=== PATIENT | male | born 1960 | race Caucasian/White ===

== ENCOUNTER 2019-05-21 14:44 | Inpatient (IN) | payer OTHER ==
[2019-05-21] VITALS (10 sets, daily range): BP systolic 93–114; BP diastolic 54–73
[~2019-05-21] VITALS: Ht 170.2 cm; Wt 95.3 kg
[2019-05-21 15:16] LABS: CREATININE ISTAT 1.1 mg/dL (0.5-1.4); HEMOGLOBIN ISTAT 14.6 g/dL (14-18); ION CA ISTAT 1.16 mmol/L (1.13-1.32)
[2019-05-21] MEDS ORDERED: IODIXANOL 320 MG/ML 100 ML VIAL. ONE ×2 (15:27→16:09)
[2019-05-21] MEDS ORDERED: LIDOCAINE 1% Multi-Dose 20 ML VIAL. ONE (15:27)
[2019-05-21] MEDS ORDERED: fentaNYL PF VIAL 100 MCG/2 ML VIAL ONE (15:28)
[2019-05-21] MEDS ORDERED: MIDAZOLAM HCL/PF 5 MG/5 ML VIAL. ONE (15:28)
[2019-05-21] MEDS ORDERED: BIVALIRUDIN 250 MG VIAL. IV ONE ×2 (15:29→16:00)
[2019-05-21] MEDS ORDERED: HEPARIN for IV BOLUS 10,000 UNIT/10 ML VIAL. IV ONE (15:30)
[2019-05-21] MEDS ORDERED: ASPIRIN CHEWABLE 81 MG TABLET. PO ONE (15:30)
--- NOTE | 2019-05-21 15:34 | PHYS DOC ---
Past Medical History Past Medical History: No Pertinent History Alcohol Use: None Drug Use: None Adult General Chief Complaint Chief Complaint: ABDOMINAL PAIN HPI HPI Patient is a 59 year old male who presents with complaining of abdominal pain. Patient complaining of 2 episodes of substernal chest pain that started 4 and 3 days ago and lasted about 20 minutes as a sharp pain without radiation or shortness of breath that resolved spontaneously. Patient complaining of episodes of pressure and fullness of epigastric pain without nausea and vomiting, chest pain, shortness of breath, dizziness and weakness, urinary symptom. Patient states he had couple episodes of diarrhea today. Patient having been seen by a physician for the last 34 years at one time during employee recheck was told he had elevated cholesterol. Review of Systems Review of Systems Constitutional: Denies fever or chills [] Eyes: Denies change in visual acuity, redness, or eye pain [] HENT: Denies nasal congestion or sore throat [] Respiratory: Denies cough or shortness of breath [] Cardiovascular: No additional information not addressed in HPI [] GI: Reports abdominal pain, diarrhea [] : Denies dysuria or hematuria [] Musculoskeletal: Denies back pain or joint pain [] Integument: Denies rash or skin lesions [] Neurologic: Denies headache, focal weakness or sensory changes [] Endocrine: Denies polyuria or polydipsia [] All other systems were reviewed and found to be within normal limits, except as documented in this note. Current Medications Current Medications Current Medications Medications (Trade) Dose Ordered Sig/Renita Start Time Stop Time Status Last Admin Dose Admin Aspirin (Children'S Aspirin) 324 mg 1X ONCE 05/21/19 15:30 05/21/19 15:31 DC 05/21/19 15:32 324 MG Bivalirudin (Angiomax) 250 mg STK-MED ONCE 05/21/19 15:29 05/21/19 15:29 DC Fentanyl Citrate (Fentanyl 2ml Vial) 100 mcg STK-MED ONCE 05/21/19 15:28 05/21/19 15:29 DC Heparin Sodium (Porcine) (Heparin Sodium) 4,000 unit 1X ONCE 05/21/19 15:30 05/21/19 15:31 DC 05/21/19 15:32 4,000 UNIT Heparin Sodium/ Sodium Chloride 500 ml @ As Directed STK-MED ONCE 9/23/19 15:27 05/21/19 15:27 DC Iodixanol (Visipaque 320) 100 ml STK-MED ONCE 05/21/19 15:27 05/21/19 15:27 DC Lidocaine HCl (Lidocaine 1% 20ml Vial) 20 ml STK-MED ONCE 05/21/19 15:27 05/21/19 15:27 DC Midazolam HCl (Versed) 5 mg STK-MED ONCE 05/21/19 15:28 05/21/19 15:29 DC Allergies Allergies Allergies Coded Allergies Type Severity Reaction Last Updated Verified codeine Allergy Intermediate 05/21/19 Yes Physical Exam Physical Exam Constitutional: Well developed, well nourished, mild distress, non-toxic appearance. [] HENT: Normocephalic, atraumatic. Eyes: PERRLA, EOMI, conjunctiva normal, no discharge. [] Neck: Normal range of motion, no tenderness, supple, no stridor. [] Cardiovascular:Heart rate regular rhythm, no murmur [] Lungs & Thorax: Bilateral breath sounds clear to auscultation [] Abdomen: Bowel sounds normal, soft, no tenderness, no masses, no pulsatile masses. [] Skin: Warm, dry, no erythema, no rash. [] Back: No tenderness, no CVA tenderness. [] Extremities: No tenderness, no cyanosis, no clubbing, ROM intact, no edema. [] Neurologic: Alert and oriented X 3, no focal deficits noted. [] Psychologic: Affect normal, judgement normal, mood normal. [] Current Patient Data Vital Signs Vital Signs Date Time Temp Pulse Resp B/P (MAP) Pulse Ox O2 Delivery O2 Flow Rate FiO2 05/21/19 15:22 97 129/58 (81) 96 05/21/19 14:50 98.1 18 Room Air 98.1 Lab Values Laboratory Tests Test 05/21/19 15:02 05/21/19 15:08 White Blood Count 9.6 x10^3/uL (4.0-11.0) Red Blood Count 4.97 x10^6/uL (4.30-5.70) Hemoglobin 15.2 g/dL (13.0-17.5) Hematocrit 43.5 % (39.0-53.0) Mean Corpuscular Volume 87 fL (79-100) Mean Corpuscular Hemoglobin 31 pg (25-35) Mean Corpuscular Hemoglobin Concent 35 g/dL (31-37) Red Cell Distribution Width 13.2 % (11.5-14.5) Platelet Count 180 x10^3/uL (140-400) Neutrophils (%) (Auto) 74 % (31-73) H Lymphocytes (%) (Auto) 15 % (24-48) L Monocytes (%) (Auto) 11 % (0-9) H Eosinophils (%) (Auto) 1 % (0-3) Basophils (%) (Auto) 0 % (0-3) Neutrophils # (Auto) 7.1 x10^3/uL (1.8-7.7) Lymphocytes # (Auto) 1.4 x10^3/uL (1.0-4.8) Monocytes # (Auto) 1.0 x10^3/uL (0.0-1.1) Eosinophils # (Auto) 0.1 x10^3/uL (0.0-0.7) Basophils # (Auto) 0.0 x10^3/uL (0.0-0.2) Prothrombin Time 13.5 SEC (11.7-14.0) Prothrombin Time INR 1.1 (0.8-1.1) Sodium Level 141 mmol/L (136-145) Potassium Level 3.1 mmol/L (3.5-5.1) L Chloride Level 104 mmol/L (98-107) Carbon Dioxide Level 29 mmol/L (21-32) Anion Gap 8 (6-14) 16 mmol/L (6-14) H Blood Urea Nitrogen 23 mg/dL (8-26) Creatinine 1.2 mg/dL (0.7-1.3) Estimated GFR (Cockcroft-Gault) 62.2 BUN/Creatinine Ratio 19 (6-20) Glucose Level 156 mg/dL (70-99) H 159 mg/dL (70-99) H Calcium Level 9.2 mg/dL (8.5-10.1) Magnesium Level 2.3 mg/dL (1.8-2.4) Total Bilirubin 1.0 mg/dL (0.2-1.0) Aspartate Amino Transferase (AST) 61 U/L (15-37) H Alanine Aminotransferase (ALT) 33 U/L (16-63) Alkaline Phosphatase 66 U/L (46-116) Creatine Kinase 239 U/L (39-308) Troponin I Quantitative 10.407 ng/mL (0.000-0.055) UX-Vzk-S-Type Natriuretic Peptide 2564 pg/mL (0-124) H Total Protein 7.3 g/dL (6.4-8.2) Albumin 3.3 g/dL (3.4-5.0) L Albumin/Globulin Ratio 0.8 (1.0-1.7) L POC Hemoglobin 14.6 g/dL (14-18) POC Hematocrit 43 % (37-52) POC Sodium 138 mmol/L (135-145) POC Potassium 3.0 mmol/L (3.5-5.0) L POC Chloride 101 mmol/L (98-110) POC Total CO2 25 mmol/L (23-32) POC Blood Urea Nitrogen 21 mg/dL (8-26) POC Creatinine 1.1 mg/dL (0.5-1.4) POC Ionized Calcium (Maria T) 1.16 mmol/L (1.13-1.32) POC Troponin I 6.22 ng/ml (<0.08) Laboratory Tests 05/21/19 15:02 Laboratory Tests 05/21/19 15:02 05/21/19 15:08 EKG EKG EKG interpreted by me. EKG at 1454 showed normal sinus rhythm at rate of 72, incomplete right bundle branch block, ST elevation in anteroseptal dates without reciprocal change, epigastric EKG at 15 00 showed the same changes and code STEMI was activated. Radiology/Procedures Radiology/Procedures [] Course & Med Decision Making Course & Med Decision Making Pertinent Labs reviewed. (See chart for details) Evaluation of patient in ER showed 59-year-old male patient 4 days ago and epigastric pain with diarrhea. EKG showed ST elevation in anteroseptal dates and code STEMI was activated and Dr. Perez was informed at 1524 and recommended to start Heparin cardiac protocol. Dr. Malone evaluated patient in ER and patient was transferred to Electronic Publishing Specialist.Patient requiring admission for further evaluation and treatment. Discussed with Dr. Simmons who is in agreement with admission. Discussed findings and plan with patient and family, who acknowledge understanding and agreement. Dragon Disclaimer Dragon Disclaimer This electronic medical record was generated, in whole or in part, using a voice recognition dictation system. Departure Departure Impression: Primary Impression: STEMI (ST elevation myocardial infarction) Additional Impressions: Hypokalemia CHF (congestive heart failure) Disposition: 09 ADMITTED INPATIENT Admitting Physician: ILIANA Condition: GUARDED Referrals: NO PCP (PCP) Critical Care Time Critical care time was 40 minutes exclusive of procedures. The HEART Score for CP Pts HEART Score for Chest Pain: HEART Score for Chest Pain Response (Comments) Value History Moderately Suspicious (Fedra@123) [address] Depression 2 Age >45 - < 65 1 Risk Factors 1 or 2 Risk Factors 1 Troponin >3 x Normal Limit 2 Total 7 Risk Factors: Risk Factors: DM, Current or recent (<one month) smoker, HTN, HLP, family hist ory of CAD, obesity. Risk Scores: Score 0 - 3: 2.5% MACE over next 6 weeks - Discharge Home Score 4 - 6: 20.3% MACE over next 6 weeks - Admit for Clinical Observation Score 7 - 10: 72.7% MACE over next 6 weeks - Early Invasive Strategies Problem Qualifiers Primary Impression: STEMI (ST elevation myocardial infarction) Involved coronary artery: unspecified coronary artery Qualified Codes: I21.3 - ST elevation (STEMI) myocardial infarction of unspecified site Additional Impressions: CHF (congestive heart failure) Heart failure type: unspecified Heart failure chronicity: unspecified Qualified Codes: I50.9 - Heart failure, unspecified PABLO PACK MD May 21, 2019 15:34
--- NOTE | 2019-05-21 15:55 | EKG ---
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
[2019-05-21] MEDS ORDERED: NITROGLYCERIN 200 MCG/2 ML SYRINGE FOR CATH/VASC LAB. ONE (15:58)
[2019-05-21 15:59] LABS: BASO % 0 % (0-3); EOS # 0.1 x10^3/uL (0.0-0.7); EOS % 1 % (0-3); HEMATOCRIT 43.5 % (39.0-53.0); HEMOGLOBIN 15.2 g/dL (13.0-17.5); LYMPH # 1.4 x10^3/uL (1.0-4.8); LYMPH % 15 % (24-48); MEAN CORPUSCULAR HEMOGLOBIN 31 pg (25-35); MEAN CORPUSCULAR HGB CONC 35 g/dL (31-37); MEAN CORPUSCULAR VOLUME 87 fL (79-100); MONO % 11 % (0-9); NEUT # 7.1 x10^3/uL (1.8-7.7); NEUT % 74 % (31-73); PLATELET COUNT 180 x10^3/uL (140-400); RED BLOOD COUNT 4.97 x10^6/uL (4.30-5.70); RED CELL DISTRIBUTION WIDTH 13.2 % (11.5-14.5); WHITE BLOOD COUNT 9.6 x10^3/uL (4.0-11.0)
[2019-05-21] MEDS ORDERED: fentaNYL PF VIAL 100 MCG/2 ML VIAL IV ONE (16:00)
[2019-05-21] MEDS ORDERED: LIDOCAINE 1% Multi-Dose 20 ML VIAL. INJ ONE (16:00)
[2019-05-21] MEDS ORDERED: NITROGLYCERIN 200 MCG/2 ML SYRINGE FOR CATH/VASC LAB. ICAR ONE (16:00)
[2019-05-21] MEDS ORDERED: MIDAZOLAM HCL/PF 5 MG/5 ML VIAL. IV ONE (16:00)
[2019-05-21] MEDS ORDERED: IODIXANOL 320 MG/ML 100 ML VIAL. IART ONE (16:00)
[2019-05-21 16:08] LABS: PROTHROMBIN TIME PATIENT 13.5 SEC (11.7-14.0)
[2019-05-21] MEDS ORDERED: TICAGRELOR 90 MG TABLET. ONE (16:11)
[2019-05-21 16:14] LABS: CALCIUM 9.2 mg/dL (8.5-10.1); CREATININE 1.2 mg/dL (0.7-1.3); GFR 62.2; POTASSIUM 3.1 mmol/L (3.5-5.1)
[2019-05-21] MEDS ORDERED: TICAGRELOR 90 MG TABLET. PO ONE (16:15)
[2019-05-21 16:16] LABS: ALBUMIN 3.3 g/dL (3.4-5.0); ALBUMIN/GLOBULIN RATIO 0.8 (1.0-1.7); MAGNESIUM 2.3 mg/dL (1.8-2.4); TOTAL PROTEIN 7.3 g/dL (6.4-8.2)
[2019-05-21] MEDS ORDERED: IV 1/2 NORMAL SALINE 1,000 ML IV SCH (16:42)
--- NOTE | 2019-05-21 16:42 | PDOC2 ---
CONSULT Date of Consult Date of Consult DATE: 05/21/19 TIME: 16:41 Reason for Consult Reason for Consult: Acute myocardial infarction Referring Physician Referring Physician: Dr. Simmons Identification/Chief Complaint Chief Complaint Abdominal pain Source Source: Chart review, Patient History of Present Illness Reason for Visit: 59-year-old male without any previous cardiac history presented with abdominal pain. Upon further interrogation, patient stated that he had an episode of chest pain past Tuesday when he was at work and then again after he got back home. The pressure-like sensation apparently lasted 24 hours and then he started having abdominal pain. He denied any associated shortness of breath, vomiting, diarrhea, palpitations or syncope. He is a nonsmoker and denied any family history of premature coronary disease. Past Medical History Cardiovascular: No pertinent hx Family History Family History Negative for coronary disease Social History No ALCOHOL: none Drugs: None Current Problem List Problem List Problems Medical Problems: (1) STEMI (ST elevation myocardial infarction) Status: Acute Current Medications Current Medications Current Medications Heparin Sodium (Porcine) (Heparin Sodium) 4,000 unit 1X ONCE IV Last administered on 05/21/19at 15:32; Start 05/21/19 at 15:30; Stop 05/21/19 at 15:31; Status DC Aspirin (Children'S Aspirin) 324 mg 1X ONCE PO Last administered on 05/21/19at 15:32; Start 05/21/19 at 15:30; Stop 05/21/19 at 15:31; Status DC Iodixanol (Visipaque 320) 100 ml STK-MED ONCE .ROUTE ; Start 05/21/19 at 15:27; Stop 05/21/19 at 15:27; Status DC Lidocaine HCl (Lidocaine 1% 20ml Vial) 20 ml STK-MED ONCE .ROUTE ; Start at 15:27; Stop 05/21/19 at 15:27; Status DC Heparin Sodium/ Sodium Chloride 500 ml @ As Directed STK-MED ONCE .ROUTE ; Start 05/21/19 at 15:27; Stop 05/21/19 at 15:27; Status DC Fentanyl Citrate (Fentanyl 2ml Vial) 100 mcg STK-MED ONCE .ROUTE ; Start 05/21/19 at 15:28; Stop 05/21/19 at 15:29; Status DC Midazolam HCl (Versed) 5 mg STK-MED ONCE .ROUTE ; Start 05/21/19 at 15:28; Stop 05/21/19 at 15:29; Status DC Bivalirudin (Angiomax) 250 mg STK-MED ONCE IV ; Start 05/21/19 at 15:29; Stop 05/21/19 at 15:29; Status DC Heparin Sodium/ Sodium Chloride 500 ml @ As Directed STK-MED ONCE .ROUTE ; Start 05/21/19 at 15:47; Stop 05/21/19 at 15:47; Status DC Nitroglycerin (Nitroglycerin) 200 mcg STK-MED ONCE .ROUTE ; Start 05/21/19 at 15:58; Stop 05/21/19 at 15:58; Status DC Nitroglycerin (Nitroglycerin) 200 mcg 1X ONCE ICAR Last administered on 05/21/19 16:29; Start 05/21/19 at 16:00; Stop 05/21/19 at 16:02; Status DC Heparin Sodium/ Sodium Chloride (HEPARIN for ARTERIAL LINE FLUSH) 1,000 unit 1X ONCE IART Last administered on 05/21/19 16:29; Start 05/21/19 at 16:00; Stop 05/21/19 at 16:02; Status DC Midazolam HCl (Versed) 5 mg 1X ONCE IV Last administered on 05/21/19 16:29; Start 05/21/19 at 16:00; Stop 05/21/19 at 16:03; Status DC Fentanyl Citrate (Fentanyl 2ml Vial) 100 mcg 1X ONCE IV Last administered on 05/21/19 16:29; Start 05/21/19 at 16:00; Stop 05/21/19 at 16:03; Status DC Iodixanol (Visipaque 320) 100 ml 1X ONCE IART Last administered on 05/21/19 16:29; Start 05/21/19 at 16:00; Stop 05/21/19 at 16:02; Status DC Bivalirudin (Angiomax) 250 mg 1X ONCE IV Last administered on 05/21/19 16:29; Start 05/21/19 at 16:00; Stop 05/21/19 at 16:02; Status DC Lidocaine HCl (Lidocaine 1% 20ml Vial) 20 ml 1X ONCE INJ Last administered on 05/21/19 16:29; Start 05/21/19 at 16:00; Stop 05/21/19 at 16:02; Status DC Iodixanol (Visipaque 320) 100 ml STK-MED ONCE .ROUTE ; Start 05/21/19 at 16:09; Stop 05/21/19 at 16:10; Status DC Ticagrelor (Brilinta) 90 mg STK-MED ONCE .ROUTE ; Start 05/21/19 at 16:11; Stop 05/21/19 at 16:12; Status DC Ticagrelor (Brilinta) 180 mg 1X ONCE PO Last administered on 05/21/19at 16:32; Start 05/21/19 at 16:15; Stop 05/21/19 at 16:16; Status DC Allergies Allergies: Coded Allergies: codeine (Verified Allergy, Intermediate, 05/21/19) ROS PSYCHOLOGICAL ROS: No: Hallucinations Eyes: No Loss of vision HEENT: No: Epistaxis Respiratory: No: Hemoptysis, Shortness of breath Cardiovascular: yes Chest Pain Gastrointestinal: No Vomiting Genitourinary: No Incontinence Neurological: No Seizures Skin: No Rash Physical Exam General: Alert, Oriented X3 HEENT: Atraumatic, PERRLA Lungs: Clear to auscultation Heart: Regular rate, No murmurs Abdomen: Soft Extremities: No edema Psych/Mental Status: Mood NL Vitals VITALS Vital Signs Date Time Temp Pulse Resp B/P (MAP) Pulse Ox O2 Delivery O2 Flow Rate FiO2 05/21/19 16:30 64 18 98 Nasal Cannula 2.0 05/21/19 15:22 129/58 (81) 05/21/19 14:50 98.1 98.1 Labs Labs Laboratory Tests Test 05/21/19 15:02 05/21/19 15:08 White Blood Count 9.6 x10^3/uL (4.0-11.0) Red Blood Count 4.97 x10^6/uL (4.30-5.70) Hemoglobin 15.2 g/dL (13.0-17.5) Hematocrit 43.5 % (39.0-53.0) Mean Corpuscular Volume 87 fL (79-100) Mean Corpuscular Hemoglobin 31 pg (25-35) Mean Corpuscular Hemoglobin Concent 35 g/dL (31-37) Red Cell Distribution Width 13.2 % (11.5-14.5) Platelet Count 180 x10^3/uL (140-400) Neutrophils (%) (Auto) 74 % (31-73) Lymphocytes (%) (Auto) 15 % (24-48) Monocytes (%) (Auto) 11 % (0-9) Eosinophils (%) (Auto) 1 % (0-3) Basophils (%) (Auto) 0 % (0-3) Neutrophils # (Auto) 7.1 x10^3/uL (1.8-7.7) Lymphocytes # (Auto) 1.4 x10^3/uL (1.0-4.8) Monocytes # (Auto) 1.0 x10^3/uL (0.0-1.1) Eosinophils # (Auto) 0.1 x10^3/uL (0.0-0.7) Basophils # (Auto) 0.0 x10^3/uL (0.0-0.2) Prothrombin Time 13.5 SEC (11.7-14.0) Prothromb Time International Ratio 1.1 (0.8-1.1) Sodium Level 141 mmol/L (136-145) Potassium Level 3.1 mmol/L (3.5-5.1) Chloride Level 104 mmol/L (98-107) Carbon Dioxide Level 29 mmol/L (21-32) Anion Gap 8 (6-14) 16 mmol/L (6-14) Blood Urea Nitrogen 23 mg/dL (8-26) Creatinine 1.2 mg/dL (0.7-1.3) Estimated GFR (Cockcroft-Gault) 62.2 BUN/Creatinine Ratio 19 (6-20) Glucose Level 156 mg/dL (70-99) 159 mg/dL (70-99) Calcium Level 9.2 mg/dL (8.5-10.1) Magnesium Level 2.3 mg/dL (1.8-2.4) Total Bilirubin 1.0 mg/dL (0.2-1.0) Aspartate Amino Transf (AST/SGOT) 61 U/L (15-37) Alanine Aminotransferase (ALT/SGPT) 33 U/L (16-63) Alkaline Phosphatase 66 U/L (46-116) Creatine Kinase 239 U/L (39-308) Troponin I Quantitative 10.407 ng/mL (0.000-0.055) JI-Cme-J-Type Natriuretic Peptide 2564 pg/mL (0-124) Total Protein 7.3 g/dL (6.4-8.2) Albumin 3.3 g/dL (3.4-5.0) Albumin/Globulin Ratio 0.8 (1.0-1.7) Bedside Hemoglobin 14.6 g/dL (14-18) Bedside Hematocrit 43 % (37-52) Bedside Sodium 138 mmol/L (135-145) Bedside Potassium 3.0 mmol/L (3.5-5.0) Bedside Chloride 101 mmol/L (98-110) Bedside Total CO2 25 mmol/L (23-32) Bedside Blood Urea Nitrogen 21 mg/dL (8-26) Bedside Creatinine 1.1 mg/dL (0.5-1.4) Bedside Ionized Calcium (Maria T) 1.16 mmol/L (1.13-1.32) Bedside Troponin I 6.22 ng/ml (<0.08) Laboratory Tests Test 05/21/19 15:02 05/21/19 15:08 White Blood Count 9.6 x10^3/uL (4.0-11.0) Red Blood Count 4.97 x10^6/uL (4.30-5.70) Hemoglobin 15.2 g/dL (13.0-17.5) Hematocrit 43.5 % (39.0-53.0) Mean Corpuscular Volume 87 fL (79-100) Mean Corpuscular Hemoglobin 31 pg (25-35) Mean Corpuscular Hemoglobin Concent 35 g/dL (31-37) Red Cell Distribution Width 13.2 % (11.5-14.5) Platelet Count 180 x10^3/uL (140-400) Neutrophils (%) (Auto) 74 % (31-73) Lymphocytes (%) (Auto) 15 % (24-48) Monocytes (%) (Auto) 11 % (0-9) Eosinophils (%) (Auto) 1 % (0-3) Basophils (%) (Auto) 0 % (0-3) Neutrophils # (Auto) 7.1 x10^3/uL (1.8-7.7) Lymphocytes # (Auto) 1.4 x10^3/uL (1.0-4.8) Monocytes # (Auto) 1.0 x10^3/uL (0.0-1.1) Eosinophils # (Auto) 0.1 x10^3/uL (0.0-0.7) Basophils # (Auto) 0.0 x10^3/uL (0.0-0.2) Prothrombin Time 13.5 SEC (11.7-14.0) Prothromb Time International Ratio 1.1 (0.8-1.1) Sodium Level 141 mmol/L (136-145) Potassium Level 3.1 mmol/L (3.5-5.1) Chloride Level 104 mmol/L (98-107) Carbon Dioxide Level 29 mmol/L (21-32) Anion Gap 8 (6-14) 16 mmol/L (6-14) Blood Urea Nitrogen 23 mg/dL (8-26) Creatinine 1.2 mg/dL (0.7-1.3) Estimated GFR (Cockcroft-Gault) 62.2 BUN/Creatinine Ratio 19 (6-20) Glucose Level 156 mg/dL (70-99) 159 mg/dL (70-99) Calcium Level 9.2 mg/dL (8.5-10.1) Magnesium Level 2.3 mg/dL (1.8-2.4) Total Bilirubin 1.0 mg/dL (0.2-1.0) Aspartate Amino Transf (AST/SGOT) 61 U/L (15-37) Alanine Aminotransferase (ALT/SGPT) 33 U/L (16-63) Alkaline Phosphatase 66 U/L (46-116) Creatine Kinase 239 U/L (39-308) Troponin I Quantitative 10.407 ng/mL (0.000-0.055) PQ-Tjq-U-Type Natriuretic Peptide 2564 pg/mL (0-124) Total Protein 7.3 g/dL (6.4-8.2) Albumin 3.3 g/dL (3.4-5.0) Albumin/Globulin Ratio 0.8 (1.0-1.7) Bedside Hemoglobin 14.6 g/dL (14-18) Bedside Hematocrit 43 % (37-52) Bedside Sodium 138 mmol/L (135-145) Bedside Potassium 3.0 mmol/L (3.5-5.0) Bedside Chloride 101 mmol/L (98-110) Bedside Total CO2 25 mmol/L (23-32) Bedside Blood Urea Nitrogen 21 mg/dL (8-26) Bedside Creatinine 1.1 mg/dL (0.5-1.4) Bedside Ionized Calcium (Maria T) 1.16 mmol/L (1.13-1.32) Bedside Troponin I 6.22 ng/ml (<0.08) Assessment/Plan Assessment/Plan Acute myocardial infarction probably with late presentation. EKG showed sinus rhythm with Q waves and ST elevations in lead V2 and V3. Patient denied any chest pain as such. Troponin level elevated. We will proceed with emergent cardiac catheterization and possible angioplasty. Risks and benefits were explained and he is agreeable. Continue current workup for abdominal pain. Thank you for your consultation. MARCELLA MCGHEE MD May 21, 2019 16:42
--- NOTE | 2019-05-21 16:42 | PDOC ---
MODERATE SEDATION ASSESSMENT RISKS/ALTERNATIVES Risks/Alternatives Risks and alternatives of this type of sedation and procedure discussed with: RISK/ALTERNATIVES: Patient H & P ON CHART H & P H & P on chart and reviewed for co-morbid conditions and appropriate labs. H&P ON CHART: Yes STATUS PREG STATUS ASSESSED: N/A MEDS/ALLERGIES REVIEWED Meds/Allergies Reviewed Medications and Allergies including time and route of recently administered narcotics and sedatives. MEDS/ALLERGIES REVIEWED: Yes ASA RATING ASA RATING: II AIRWAY ASSESSMENT Airway Assessment Airway patency, oral function limitations, presence of caps, crowns, dentures, partials, and ability to extend neck assessed. AIRWAY ASSESSMENT: Yes MALLAMPATI SCORE MALLAMPATI SCORE: II PRE-SEDATION ASSESSMENT PRE-SEDATION ASSESSMENT: Yes MARCELLA MCGHEE MD May 21, 2019 16:42
[2019-05-21] MEDS ORDERED: ACETAMINOPHEN 325 MG TABLET. PO PRN (16:45)
[2019-05-21] MEDS ORDERED: NITROGLYCERIN SUBLINGUAL 0.4 MG BOTTLE OF 25. SL PRN (16:45)
--- NOTE | 2019-05-21 16:54 | CARD ---
MR#: [id number] Date of Study: 05/21/2019 Ordering Physician: MARCELLA ZAMORA, Referring Physician: MARCELLA ZAMORA, Tech: RT Jean-Paul (R) APPROVED REPORT Technologist: RT Jean-Paul (R) ORESTES Nurse: Tg Rich R.N. Procedure(s) performed: 1. Left heart catheterization, selective coronary angiography and left ventr iculography 2. Successful PCI/drug eluting stent placement to the left anterior descending artery and successful PTCA to the diagonal branch fluoro time: 13.4 min dose:91 Gycm2 contrast:169ml moderate sedation: 52 MIN INDICATION The indication(s) include : Acute anterior wall myocardial infarction with late presentation. [facility] Clinical Frailty Scale [facility] Clinical Frailty Scale: Managing Well Heart Failure Heart Failure: No PROCEDURE NARRATIVE After explaining the risks, benefits and alternative options, [facility] Patient was brought to the cardiac Machine Sweeper Brush Maker and his right groin was prepped and draped in the usual fashion. 20 mL of 2% lidocaine was infiltrated into the skin and subcutaneous tissues for loca l anesthesia. Arterial access was obtained in the right common femoral artery and a 6 Frisian sheath w as inserted. 6 Frisian JL4 and 6 Frisian JR4 catheters were used to perform selective angiography of th e left and right coronary arteries. 6 Frisian pigtail catheter was used to perform left ventriculograp hy. The following findings were noted. FINDINGS 1. Hemodynamics: Left ventricle end diastolic pressure 22 mmHg consistent with acute diastolic hear t failure. No pullback gradient across the aortic valve. 2. Left ventriculography: Akinetic mid to distal anterolateral wall with ejection fraction estimate d at 30-35%. No significant mitral regurgitation was seen. 3. Coronary angiography: a. The left main coronary artery arose from the left sinus of Valsalva, gave rise to the left anteri or descending and left circumflex arteries and did not show any significant stenosis. b. The left anterior descending artery showed 100% occlusion in the proximal segment. c. The left circumflex artery did not show any significant stenosis. d. The right coronary artery was a large and dominant vessel arising from the right sinus of Valsalv a that did not show any significant stenosis. INTERVENTION The left main coronary artery was engaged with a 6 Frisian XB 3.5 guide catheter and the stenosis in t he proximal segment of left anterior descending artery was crossed with a 0.014 inch Jump or Fall water guidewire. This was predilated with a 2.5 x 12 mm trek balloon following which this was successfully treated with a 2.75 x 28 mm Vidales Xience Imelda drug-eluting stent. The stent struts were then cross ed into the diagonal branch with the same guidewire and the struts and proximal segment of the diagon al branch dilated with a 2.5 x 8 mm noncompliant NC trek balloon. Follow-up angiography showed resolu tion of the lesion to 0%. However, the distal LAD was found to be small caliber was sluggish flow pro bably secondary to late presentation and subsequent inflammatory edema in the myocardium. Patient yesenia erated the procedure well. Hemostasis was achieved using Angio-Seal. There were no immediate complica tions. KRYSTIAN Flow KRYSTIAN Flow (Pre-Intervention): KRYSTIAN-0 KRYSTIAN Flow (Post-Intervention): KRYSTIAN-2 Conclusion 1. Severe single-vessel coronary artery disease with complete occlusion of the left anterior descend ing artery 2. Successful PCI/LUIS CARLOS to LAD and successful PTCA to the diagonal branch 3. Akinesis of the mid to distal anterolateral wall with ejection fraction estimated at 30-35% Recommendations 1. Aspirin 325 mg daily 2. Ticagrelor 90 mg BID for one month followed by Plavix 75 mg daily for preferably one year 3. Aggressive cardiovascular risk factor modification Signed by : Marcella Zamora, Electronically Approved : 05/21/2019 16:54:22
[2019-05-21] MEDS: CARVEDILOL 6.25 MG TABLET. PO SCH ×2 (17:00→18:08)
--- NOTE | 2019-05-21 20:12 | PDOC1 ---
History and Physical Date of Admission Date of Admission DATE: 05/21/19 TIME: 20:11 Source Source: Chart review, Patient History of Present Illness History of Present Illness chest pain for 2 days, started at work on tuesday. He has not felt well for days, then pain worse today. 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 no prior hospitalizations, gets yearly physicals for his work, takes no meds, had possibly some high cholesterol he was aware Past Medical History Cardiovascular: No pertinent hx Pulmonary: No pertinent hx GI: No pertinent hx Heme/Onc: No pertinent hx ENT: No pertinent hx Renal/: No pertinent hx Endocrine: No pertinent hx Past Surgical History Past Surgical History: No pertinent history Family History Family History: No Significant Social History Smoke: No ALCOHOL: none Drugs: None Current Problem List Problem List Problems Medical Problems: (1) CHF (congestive heart failure) Status: Acute (2) Hypokalemia Status: Acute (3) STEMI (ST elevation myocardial infarction) Status: Acute Current Medications Current Medications Current Medications Heparin Sodium (Porcine) (Heparin Sodium) 4,000 unit 1X ONCE IV Last adminis tered on 05/21/19at 15:32; Start 05/21/19 at 15:30; Stop 05/21/19 at 15:31; Status DC Aspirin (Children'S Aspirin) 324 mg 1X ONCE PO Last administered on 05/21/19at 15:32; Start 05/21/19 at 15:30; Stop 05/21/19 at 15:31; Status DC Iodixanol (Visipaque 320) 100 ml STK-MED ONCE .ROUTE ; Start 05/21/19 at 15:27; Stop 05/21/19 at 15:27; Status DC Lidocaine HCl (Lidocaine 1% 20ml Vial) 20 ml STK-MED ONCE .ROUTE ; Start 05/21/19 at 15:27; Stop 05/21/19 at 15:27; Status DC Heparin Sodium/ Sodium Chloride 500 ml @ As Directed STK-MED ONCE .ROUTE ; Start 05/21/19 at 15:27; Stop 05/21/19 at 15:27; Status DC Fentanyl Citrate (Fentanyl 2ml Vial) 100 mcg STK-MED ONCE .ROUTE ; Start 05/21/19 at 15:28; Stop 05/21/19 at 15:29; Status DC Midazolam HCl (Versed) 5 mg STK-MED ONCE .ROUTE ; Start 05/21/19 at 15:28; Stop 05/21/19 at 15:29; Status DC Bivalirudin (Angiomax) 250 mg STK-MED ONCE IV ; Start 05/21/19 at 15:29; Stop 05/21/19 at 15:29; Status DC Heparin Sodium/ Sodium Chloride 500 ml @ As Directed STK-MED ONCE .ROUTE ; Start 05/21/19 at 15:47; Stop 05/21/19 at 15:47; Status DC Nitroglycerin (Nitroglycerin) 200 mcg STK-MED ONCE .ROUTE ; Start 05/21/19 at 15:58; Stop 05/21/19 at 15:58; Status DC Nitroglycerin (Nitroglycerin) 200 mcg 1X ONCE ICAR Last administered on 05/21/19 16:29; Start 05/21/19 at 16:00; Stop 05/21/19 at 16:02; Status DC Heparin Sodium/ Sodium Chloride (HEPARIN for ARTERIAL LINE FLUSH) 1,000 unit 1X ONCE IART Last administered on 05/21/19 16:29; Start 05/21/19 at 16:00; Stop 05/21/19 at 16:02; Status DC Midazolam HCl (Versed) 5 mg 1X ONCE IV Last administered on 05/21/19 16:29; Start 05/21/19 at 16:00; Stop 05/21/19 at 16:03; Status DC Fentanyl Citrate (Fentanyl 2ml Vial) 100 mcg 1X ONCE IV Last administered on 05/21/19 16:29; Start 05/21/19 at 16:00; Stop 05/21/19 at 16:03; Status DC Iodixanol (Visipaque 320) 100 ml 1X ONCE IART Last administered on 05/21/19 16:29; Start 05/21/19 at 16:00; Stop 05/21/19 at 16:02; Status DC Bivalirudin (Angiomax) 250 mg 1X ONCE IV Last administered on 05/21/19 16:29; Start 05/21/19 at 16:00; Stop 05/21/19 at 16:02; Status DC Lidocaine HCl (Lidocaine 1% 20ml Vial) 20 ml 1X ONCE INJ Last administered on 9/23/19at 16:29; Start 05/21/19 at 16:00; Stop 05/21/19 at 16:02; Status DC Iodixanol (Visipaque 320) 100 ml STK-MED ONCE .ROUTE ; Start 05/21/19 at 16:09; Stop 05/21/19 at 16:10; Status DC Ticagrelor (Brilinta) 90 mg STK-MED ONCE .ROUTE ; Start 05/21/19 at 16:11; Stop 05/21/19 at 16:12; Status DC Ticagrelor (Brilinta) 180 mg 1X ONCE PO Last administered on 05/21/19at 16:32; Start 05/21/19 at 16:15; Stop 05/21/19 at 16:16; Status DC Sodium Chloride 1,000 ml @ 75 mls/hr [id number] IV Last administered on 05/21/19at 18:09; Start 05/21/19 at 16:42; Stop 05/22/19 at 06:01 Aspirin (Children'S Aspirin) 81 mg DAILYWBKFT PO ; Start 05/22/19 at 08:00 Ticagrelor (Brilinta) 90 mg BID PO ; Start 05/22/19 at 09:00 Carvedilol (Coreg) 6.25 mg BIDWMEALS PO ; Start 05/21/19 at 17:00 Lisinopril (Prinivil) 5 mg DAILY PO ; Start 05/22/19 at 09:00 Atorvastatin Calcium (Lipitor) 40 mg QHS PO ; Start 05/21/19 at 21:00 Acetaminophen (Tylenol) 650 mg PRN Q6HRS PRN PO MILD PAIN / TEMP; Start 05/21/19 at 16:45 Nitroglycerin (Nitrostat) 0.4 mg PRN Q5MIN PRN SL CHEST PAIN; Start 05/21/19 at 16:45 Allergies Allergies: Coded Allergies: codeine (Verified Allergy, Intermediate, 05/21/19) ROS General: No: Chills, Night Sweats, Fatigue, Malaise, Appetite, Other PSYCHOLOGICAL ROS: No: Anxiety, Behavioral Disorder, Concentration difficultie, Decreased libido, Depression, Disorientation, Hallucinations, Hostility, Irritablity, Memory difficulties, Mood Swings, Obsessive thoughts, Physical abuse, Sexual abuse, Sleep disturbances, Suicidal ideation, Other Eyes: No Blurry vision, No Decreased vision, No Double vision, No Dry eyes, No Excessive tearing, No Eye Pain, No Itchy Eyes, No Loss of vision, No Photophobia, No Scotomata, No Uses contacts, No Uses glasses, No Other ALLERGY AND IMMUNOLOGY: No: Hives, Insect Bite Sensitivity, Itchy/Watery Eyes, Nasal Congestion, Post Nasal Drip, Seasonal Allergies, Other Respiratory: No: Cough, Hemoptysis, Orthopnea, Pleuritic Pain, Shortness of breath, SOB with excertion, Sputum Changes, Stridor, Tachypnea, Wheezing, Other Cardiovascular: yes Chest Pain Gastrointestinal: No Nausea, No Vomiting, No Abdominal Pain, No Diarrhea, No Constipation, No Melena, No Hematochezia, No Other Genitourinary: No Dysuria, No Frequency, No Incontinence, No Hematuria, No Retention, No Discharge, No Urgency, No Pain, No Flank Pain, No Other, No , No , No , No , No , No , No Musculoskeletal: No Gait Disturbance, No Joint Pain, No Joint Stiffness, No Joint Swelling, No Muscle Pain, No Muscular Weakness, No Pain In:, No Swelling In:, No Other Neurological: No Behavorial Changes, No Bowel/Bladder ControlChng, No Confusion, No Dizziness, No Gait Disturbance, No Headaches, No Impaired Coord/balance, No Memory Loss, No Numbness/Tingling, No Seizures, No Speech Problems, No Tremors, No Visual Changes, No Weakness, No Other Skin: No Dry Skin, No Eczema, No Hair Changes, No Lumps, No Mole Changes, No Mottling, No Nail Changes, No Pruritus, No Rash, No Skin Lesion Changes, No Other, No Acne Physical Exam General: Alert, Oriented X3, Cooperative, No acute distress HEENT: Atraumatic, PERRLA, Mucous membr. moist/pink Lungs: Clear to auscultation, Normal air movement Heart: S1S2, RRR, no gallops Extremities: No cyanosis, No edema, Normal pulses Skin: No rashes Neuro: Normal tone, Sensation intact Psych/Mental Status: Mood NL Vitals Vitals Vital Signs Date Time Temp Pulse Resp B/P (MAP) Pulse Ox O2 Delivery O2 Flow Rate FiO2 05/21/19 20:00 98.6 67 14 101/63 (76) 97 Room Air 98.6 05/21/19 16:30 2.0 Labs Labs Laboratory Tests Test 05/21/19 15:02 05/21/19 15:08 White Blood Count 9.6 x10^3/uL (4.0-11.0) Red Blood Count 4.97 x10^6/uL (4.30-5.70) Hemoglobin 15.2 g/dL (13.0-17.5) Hematocrit 43.5 % (39.0-53.0) Mean Corpuscular Volume 87 fL (79-100) Mean Corpuscular Hemoglobin 31 pg (25-35) Mean Corpuscular Hemoglobin Concent 35 g/dL (31-37) Red Cell Distribution Width 13.2 % (11.5-14.5) Platelet Count 180 x10^3/uL (140-400) Neutrophils (%) (Auto) 74 % (31-73) Lymphocytes (%) (Auto) 15 % (24-48) Monocytes (%) (Auto) 11 % (0-9) Eosinophils (%) (Auto) 1 % (0-3) Basophils (%) (Auto) 0 % (0-3) Neutrophils # (Auto) 7.1 x10^3/uL (1.8-7.7) Lymphocytes # (Auto) 1.4 x10^3/uL (1.0-4.8) Monocytes # (Auto) 1.0 x10^3/uL (0.0-1.1) Eosinophils # (Auto) 0.1 x10^3/uL (0.0-0.7) Basophils # (Auto) 0.0 x10^3/uL (0.0-0.2) Prothrombin Time 13.5 SEC (11.7-14.0) Prothromb Time International Ratio 1.1 (0.8-1.1) Sodium Level 141 mmol/L (136-145) Potassium Level 3.1 mmol/L (3.5-5.1) Chloride Level 104 mmol/L (98-107) Carbon Dioxide Level 29 mmol/L (21-32) Anion Gap 8 (6-14) 16 mmol/L (6-14) Blood Urea Nitrogen 23 mg/dL (8-26) Creatinine 1.2 mg/dL (0.7-1.3) Estimated GFR (Cockcroft-Gault) 62.2 BUN/Creatinine Ratio 19 (6-20) Glucose Level 156 mg/dL (70-99) 159 mg/dL (70-99) Calcium Level 9.2 mg/dL (8.5-10.1) Magnesium Level 2.3 mg/dL (1.8-2.4) Total Bilirubin 1.0 mg/dL (0.2-1.0) Aspartate Amino Transf (AST/SGOT) 61 U/L (15-37) Alanine Aminotransferase (ALT/SGPT) 33 U/L (16-63) Alkaline Phosphatase 66 U/L (46-116) Creatine Kinase 239 U/L (39-308) Troponin I Quantitative 10.407 ng/mL (0.000-0.055) QI-Ome-E-Type Natriuretic Peptide 2564 pg/mL (0-124) Total Protein 7.3 g/dL (6.4-8.2) Albumin 3.3 g/dL (3.4-5.0) Albumin/Globulin Ratio 0.8 (1.0-1.7) Bedside Hemoglobin 14.6 g/dL (14-18) Bedside Hematocrit 43 % (37-52) Bedside Sodium 138 mmol/L (135-145) Bedside Potassium 3.0 mmol/L (3.5-5.0) Bedside Chloride 101 mmol/L (98-110) Bedside Total CO2 25 mmol/L (23-32) Bedside Blood Urea Nitrogen 21 mg/dL (8-26) Bedside Creatinine 1.1 mg/dL (0.5-1.4) Bedside Ionized Calcium (Maria T) 1.16 mmol/L (1.13-1.32) Bedside Troponin I 6.22 ng/ml (<0.08) Laboratory Tests Test 05/21/19 15:02 05/21/19 15:08 White Blood Count 9.6 x10^3/uL (4.0-11.0) Red Blood Count 4.97 x10^6/uL (4.30-5.70) Hemoglobin 15.2 g/dL (13.0-17.5) Hematocrit 43.5 % (39.0-53.0) Mean Corpuscular Volume 87 fL (79-100) Mean Corpuscular Hemoglobin 31 pg (25-35) Mean Corpuscular Hemoglobin Concent 35 g/dL (31-37) Red Cell Distribution Width 13.2 % (11.5-14.5) Platelet Count 180 x10^3/uL (140-400) Neutrophils (%) (Auto) 74 % (31-73) Lymphocytes (%) (Auto) 15 % (24-48) Monocytes (%) (Auto) 11 % (0-9) Eosinophils (%) (Auto) 1 % (0-3) Basophils (%) (Auto) 0 % (0-3) Neutrophils # (Auto) 7.1 x10^3/uL (1.8-7.7) Lymphocytes # (Auto) 1.4 x10^3/uL (1.0-4.8) Monocytes # (Auto) 1.0 x10^3/uL (0.0-1.1) Eosinophils # (Auto) 0.1 x10^3/uL (0.0-0.7) Basophils # (Auto) 0.0 x10^3/uL (0.0-0.2) Prothrombin Time 13.5 SEC (11.7-14.0) Prothromb Time International Ratio 1.1 (0.8-1.1) Sodium Level 141 mmol/L (136-145) Potassium Level 3.1 mmol/L (3.5-5.1) Chloride Level 104 mmol/L (98-107) Carbon Dioxide Level 29 mmol/L (21-32) Anion Gap 8 (6-14) 16 mmol/L (6-14) Blood Urea Nitrogen 23 mg/dL (8-26) Creatinine 1.2 mg/dL (0.7-1.3) Estimated GFR (Cockcroft-Gault) 62.2 BUN/Creatinine Ratio 19 (6-20) Glucose Level 156 mg/dL (70-99) 159 mg/dL (70-99) Calcium Level 9.2 mg/dL (8.5-10.1) Magnesium Level 2.3 mg/dL (1.8-2.4) Total Bilirubin 1.0 mg/dL (0.2-1.0) Aspartate Amino Transf (AST/SGOT) 61 U/L (15-37) Alanine Aminotransferase (ALT/SGPT) 33 U/L (16-63) Alkaline Phosphatase 66 U/L (46-116) Creatine Kinase 239 U/L (39-308) Troponin I Quantitative 10.407 ng/mL (0.000-0.055) TA-Tgg-X-Type Natriuretic Peptide 2564 pg/mL (0-124) Total Protein 7.3 g/dL (6.4-8.2) Albumin 3.3 g/dL (3.4-5.0) Albumin/Globulin Ratio 0.8 (1.0-1.7) Bedside Hemoglobin 14.6 g/dL (14-18) Bedside Hematocrit 43 % (37-52) Bedside Sodium 138 mmol/L (135-145) Bedside Potassium 3.0 mmol/L (3.5-5.0) Bedside Chloride 101 mmol/L (98-110) Bedside Total CO2 25 mmol/L (23-32) Bedside Blood Urea Nitrogen 21 mg/dL (8-26) Bedside Creatinine 1.1 mg/dL (0.5-1.4) Bedside Ionized Calcium (Maria T) 1.16 mmol/L (1.13-1.32) Bedside Troponin I 6.22 ng/ml (<0.08) Images Images CATH 1. Severe single-vessel coronary artery disease with complete occlusion of the left anterior descending artery 2. Successful PCI/LUIS CARLOS to LAD and successful PTCA to the diagonal branch 3. Akinesis of the mid to distal anterolateral wall with ejection fraction estimated at 30-35% VTE Prophylaxis Ordered VTE Prophylaxis Devices: No VTE Pharmacological Prophylaxi: Yes Assessment/Plan Assessment/Plan STEMI, s/p stent to LAD today admit to ICU lipid panel in AM start mona, b-pedro in AM, CV following, BALJIT PEDERSON MD May 21, 2019 20:12
[2019-05-21] MEDS ORDERED: POTASSIUM CHLORIDE 20 MEQ TABLET.ER. PO ONE ×2 (20:15→21:00)
[2019-05-21] MEDS: SIMETHICONE 80 MG TAB.CHEW PO PRN (21:14)
[2019-05-21] MEDS: ATORVASTATIN CALCIUM 40 MG TABLET. PO SCH (21:16)
[2019-05-22] VITALS (18 sets, daily range): BP systolic 91–113; BP diastolic 53–72
[2019-05-22] MEDS: SIMETHICONE 80 MG TAB.CHEW PO PRN ×2 (04:46→08:48)
[2019-05-22 05:32] LABS: BASO % 0 % (0-3); EOS # 0.1 x10^3/uL (0.0-0.7); EOS % 1 % (0-3); HEMATOCRIT 41.4 % (39.0-53.0); HEMOGLOBIN 14.5 g/dL (13.0-17.5); LYMPH # 1.2 x10^3/uL (1.0-4.8); LYMPH % 14 % (24-48); MEAN CORPUSCULAR HEMOGLOBIN 31 pg (25-35); MEAN CORPUSCULAR HGB CONC 35 g/dL (31-37); MEAN CORPUSCULAR VOLUME 88 fL (79-100); MONO # 0.9 x10^3/uL (0.0-1.1); MONO % 10 % (0-9); NEUT # 6.5 x10^3/uL (1.8-7.7); NEUT % 75 % (31-73); PLATELET COUNT 195 x10^3/uL (140-400); RED BLOOD COUNT 4.73 x10^6/uL (4.30-5.70); RED CELL DISTRIBUTION WIDTH 13.4 % (11.5-14.5); WHITE BLOOD COUNT 8.7 x10^3/uL (4.0-11.0)
[2019-05-22 05:44] LABS: CALCIUM 8.8 mg/dL (8.5-10.1); CREATININE 1.1 mg/dL (0.7-1.3); GFR 68.8; POTASSIUM 3.5 mmol/L (3.5-5.1)
[2019-05-22 05:51] LABS: CHOLESTEROL/HDL RATIO 4.4
[2019-05-22] MEDS: TICAGRELOR 90 MG TABLET. PO SCH ×2 (08:48→20:02)
[2019-05-22] MEDS: POTASSIUM CHLORIDE 20 MEQ TABLET.ER. PO SCH (08:48)
[2019-05-22] MEDS: ASPIRIN CHEWABLE 81 MG TABLET. PO SCH (08:48)
[2019-05-22] MEDS: CARVEDILOL 6.25 MG TABLET. PO SCH ×2 (08:49→17:19)
[2019-05-22] MEDS: LISINOPRIL 5 MG TABLET. PO SCH (08:49)
--- NOTE | 2019-05-22 10:37 | PDOC ---
[employer] PROGRESS NOTE Chief Complaint Chief Complaint Chest pain History of Present Illness History of Present Illness 05/22/19 Pt seen and examined in the ICU Accompanied by family Was sitting in chair, in good spirits 05/21/[address] Simmons for chest pain Pain started at work on Tuesday Vitals/I&O Vitals/I&O: Vital Signs Date Time Temp Pulse Resp B/P (MAP) Pulse Ox O2 Delivery O2 Flow Rate FiO2 05/22/19 09:00 73 24 105/65 (78) 97 Room Air 05/22/19 08:00 99.0 99.0 05/21/19 16:30 2.0 I & O 05/21/19 05/21/19 05/22/19 15:00 23:00 07:00 Intake Total 240 ml 888 ml Output Total 0 ml Balance 240 ml 888 ml Physical Exam Physical Exam: General: Alert, Oriented X3 HEENT: Atraumatic, PERRLA Lungs: Clear to auscultation Heart: Regular rate, No murmurs Abdomen: Soft Extremities: No edema Psych/Mental Status: Mood NL General: Alert, Oriented X3, Cooperative, No acute distress Heart: Regular rate, No murmurs Abdomen: Soft Extremities: No cyanosis, No edema, Normal pulses Skin: No rashes Labs Labs: Laboratory Tests Test 05/21/19 15:02 05/21/19 15:08 05/22/19 04:58 White Blood Count 9.6 x10^3/uL (4.0-11.0) 8.7 x10^3/uL (4.0-11.0) Red Blood Count 4.97 x10^6/uL (4.30-5.70) 4.73 x10^6/uL (4.30-5.70) Hemoglobin 15.2 g/dL (13.0-17.5) 14.5 g/dL (13.0-17.5) Hematocrit 43.5 % (39.0-53.0) 41.4 % (39.0-53.0) Mean Corpuscular Volume 87 fL (79-100) 88 fL (79-100) Mean Corpuscular Hemoglobin 31 pg (25-35) 31 pg (25-35) Mean Corpuscular Hemoglobin Concent 35 g/dL (31-37) 35 g/dL (31-37) Red Cell Distribution Width 13.2 % (11.5-14.5) 13.4 % (11.5-14.5) Platelet Count 180 x10^3/uL (140-400) 195 x10^3/uL (140-400) Neutrophils (%) (Auto) 74 % (31-73) 75 % (31-73) Lymphocytes (%) (Auto) 15 % (24-48) 14 % (24-48) Monocytes (%) (Auto) 11 % (0-9) 10 % (0-9) Eosinophils (%) (Auto) 1 % (0-3) 1 % (0-3) Basophils (%) (Auto) 0 % (0-3) 0 % (0-3) Neutrophils # (Auto) 7.1 x10^3/uL (1.8-7.7) 6.5 x10^3/uL (1.8-7.7) Lymphocytes # (Auto) 1.4 x10^3/uL (1.0-4.8) 1.2 x10^3/uL (1.0-4.8) Monocytes # (Auto) 1.0 x10^3/uL (0.0-1.1) 0.9 x10^3/uL (0.0-1.1) Eosinophils # (Auto) 0.1 x10^3/uL (0.0-0.7) 0.1 x10^3/uL (0.0-0.7) Basophils # (Auto) 0.0 x10^3/uL (0.0-0.2) 0.0 x10^3/uL (0.0-0.2) Prothrombin Time 13.5 SEC (11.7-14.0) Prothromb Time International Ratio 1.1 (0.8-1.1) Sodium Level 141 mmol/L (136-145) 140 mmol/L (136-145) Potassium Level 3.1 mmol/L (3.5-5.1) 3.5 mmol/L (3.5-5.1) Chloride Level 104 mmol/L (98-107) 105 mmol/L (98-107) Carbon Dioxide Level 29 mmol/L (21-32) 26 mmol/L (21-32) Anion Gap 8 (6-14) 16 mmol/L (6-14) 9 (6-14) Blood Urea Nitrogen 23 mg/dL (8-26) 18 mg/dL (8-26) Creatinine 1.2 mg/dL (0.7-1.3) 1.1 mg/dL (0.7-1.3) Estimated GFR (Cockcroft-Gault) 62.2 68.8 BUN/Creatinine Ratio 19 (6-20) Glucose Level 156 mg/dL (70-99) 159 mg/dL (70-99) 131 mg/dL (70-99) Calcium Level 9.2 mg/dL (8.5-10.1) 8.8 mg/dL (8.5-10.1) Magnesium Level 2.3 mg/dL (1.8-2.4) Total Bilirubin 1.0 mg/dL (0.2-1.0) Aspartate Amino Transf (AST/SGOT) 61 U/L (15-37) Alanine Aminotransferase (ALT/SGPT) 33 U/L (16-63) Alkaline Phosphatase 66 U/L (46-116) Creatine Kinase 239 U/L (39-308) Troponin I Quantitative 10.407 ng/mL (0.000-0.055) DN-Suc-V-Type Natriuretic Peptide 2564 pg/mL (0-124) Total Protein 7.3 g/dL (6.4-8.2) Albumin 3.3 g/dL (3.4-5.0) Albumin/Globulin Ratio 0.8 (1.0-1.7) Bedside Hemoglobin 14.6 g/dL (14-18) Bedside Hematocrit 43 % (37-52) Bedside Sodium 138 mmol/L (135-145) Bedside Potassium 3.0 mmol/L (3.5-5.0) Bedside Chloride 101 mmol/L (98-110) Bedside Total CO2 25 mmol/L (23-32) Bedside Blood Urea Nitrogen 21 mg/dL (8-26) Bedside Creatinine 1.1 mg/dL (0.5-1.4) Bedside Ionized Calcium (Maria T) 1.16 mmol/L (1.13-1.32) Bedside Troponin I 6.22 ng/ml (<0.08) Triglycerides Level 150 mg/dL (0-150) Cholesterol Level 163 mg/dL (0-200) LDL Cholesterol, Calculated 96 mg/dL (0-100) VLDL Cholesterol, Calculated 30 mg/dL (0-40) Non-HDL Cholesterol Calculated 126 mg/dL (0-129) HDL Cholesterol 37 mg/dL (40-60) Cholesterol/HDL Ratio 4.4 Review of Systems Review of Systems: No chest pain, no shortness of breath No nausea, no vomiting Assessment and Plan Assessmemt and Plan Problems Medical Problems: (1) CHF (congestive heart failure) Status: Acute (2) Hypokalemia Status: Acute (3) STEMI (ST elevation myocardial infarction) Status: Acute Assessment STEMI CHF Hypokalemia Plan ICU monitoring Wound care CAD meds DVT proph Home meds Discharge disposition pending Comment Review of Relevant I have reviewed the following items ta (where applicable) has been applied. Medications: Current Medications Medications (Trade) Dose Ordered Sig/Renita Route PRN Reason Start Time Stop Time Status Last Admin Dose Admin Heparin Sodium (Porcine) (Heparin Sodium) 4,000 unit 1X ONCE IV 05/21/19 15:30 05/21/19 15:31 DC 05/21/19 15:32 Aspirin (Children'S Aspirin) 324 mg 1X ONCE PO 05/21/19 15:30 05/21/19 15:31 DC 05/21/19 15:32 Nitroglycerin (Nitroglycerin) 200 mcg 1X ONCE ICAR 05/21/19 16:00 05/21/19 16:02 DC 05/21/19 16:29 Heparin Sodium/ Sodium Chloride (HEPARIN for ARTERIAL LINE FLUSH) 1,000 unit 1X ONCE IART 05/21/19 16:00 05/21/19 16:02 DC 05/21/19 16:29 Midazolam HCl (Versed) 5 mg 1X ONCE IV 05/21/19 16:00 05/21/19 16:03 DC 05/21/19 16:29 Fentanyl Citrate (Fentanyl 2ml Vial) 100 mcg 1X ONCE IV 05/21/19 16:00 05/21/19 16:03 DC 05/21/19 16:29 Iodixanol (Visipaque 320) 100 ml 1X ONCE IART 05/21/19 16:00 05/21/19 16:02 DC 05/21/19 16:29 Bivalirudin (Angiomax) 250 mg 1X ONCE IV 05/21/19 16:00 05/21/19 16:02 DC 05/21/19 16:29 Lidocaine HCl (Lidocaine 1% 20ml Vial) 20 ml 1X ONCE INJ 05/21/19 16:00 05/21/19 16:02 DC 05/21/19 16:29 Ticagrelor (Brilinta) 180 mg 1X ONCE PO 05/21/19 16:15 05/21/19 16:16 DC 05/21/19 16:32 Sodium Chloride 1,000 ml @ 75 mls/hr [id number] IV 05/21/19 16:42 05/22/19 06:01 DC 05/21/19 18:09 Aspirin (Children'S Aspirin) 81 mg DAILYWBKFT PO 05/22/19 08:00 05/22/19 08:49 Ticagrelor (Brilinta) 90 mg BID PO 05/22/19 09:00 05/22/19 08:49 Carvedilol (Coreg) 6.25 mg BIDWMEALS PO 05/21/19 17:00 05/22/19 08:49 Lisinopril (Prinivil) 5 mg DAILY PO 05/22/19 09:00 05/22/19 08:49 Atorvastatin Calcium (Lipitor) 40 mg QHS PO 05/21/19 21:00 05/21/19 21:16 Potassium Chloride (Klor-Con) 40 meq 1X ONCE PO 05/21/19 20:15 05/21/19 20:16 DC 05/21/19 21:16 Potassium Chloride (Klor-Con) 20 meq DAILYWBKFT PO 05/22/19 08:00 05/22/19 08:49 Potassium Chloride (Klor-Con) 20 meq 1X ONCE PO 05/21/19 21:00 05/21/19 21:01 DC 05/21/19 21:16 Simethicone (Gas-X) 80 mg PRN AFTMEALHC PRN PO GAS / BLOATING 05/21/19 21:00 05/22/19 08:49 WILNER VEGA III DO May 22, 2019 10:37
--- NOTE | 2019-05-22 12:44 | CARD ---
MR#: [id number] Date of Study: 05/22/2019 Ordering Physician: NOEL RAMOS, Referring Physician: NOEL RAMOS Tech: Kristy De Jesus RDCS APPROVED REPORT EXAM: Two-dimensional and M-mode echocardiogram with Doppler and color Doppler. Other Information Quality : Good INDICATION STEMI s/p stent to LAD 2D DIMENSIONS RVDd3.1 (2.9-3.5cm)Left Atrium(2D)3.9 (1.6-4.0cm) IVSd1.3 (0.7-1.1cm)Aortic Root(2D)2.8 (2.0-3.7cm) LVDd4.3 (3.9-5.9cm)LVOT Diameter2.2 (1.8-2.4cm) PWd0.9 (0.7-1.1cm)LVDs2.8 (2.5-4.0cm) FS (%) 34.8 %SV53.4 ml LVEF(%)64.3 (>50%) Aortic Valve AoV Peak Danis.121.4cm/sAoV VTI18.4cm AO Peak GR.5.9mmHgLVOT VTI 20.52cm AO Mean GR.3mmHgAVA (VTI)4.00cm2 Mitral Valve MV E Zdjvqqmk24.7cm/sMV DECEL [id number] MV A Nbxfgvez32.6cm/sE/A Ratio1.5 TDI Lateral E' P. V7.92cm/sMedial E' P. V6.31cm/s E/Lateral E'10.6E/Medial E'13.3 Tricuspid Valve TR P. [id number]/sRAP [id number] TR Peak Gr.33aiMkZEGC09ldQl Pulmonary Vein S1 Jfzkvpoc91.5cm/sS2 Bysftbih45.79cm/s D2 Bxqkhmmv29.8cm/s LEFT VENTRICLE The left ventricle is normal size. There is mild asymmetric septal left ventricular hypertrophy. The Ejection Fraction is 35-40%. Severe hypokinesis of the mid to distal anterior and anteroseptal mauricio and apical wall. The left ventricular diastolic function and filling is normal for age. RIGHT VENTRICLE The right ventricle is normal size. The right ventricular systolic function is normal. ATRIA The left atrium size is normal. The right atrium size is normal. The interatrial septum is intact wit h no evidence for an atrial septal defect or patent foramen ovale as noted on 2-D or Doppler imaging. AORTIC VALVE The aortic valve is calcified but opens well. Doppler and Color Flow revealed no significant aortic r egurgitation. There is no significant aortic valvular stenosis. MITRAL VALVE The mitral valve is normal in structure and function. There is no evidence of mitral valve prolapse. There is no mitral valve stenosis. Doppler and Color-flow revealed trace mitral regurgitation. TRICUSPID VALVE The tricuspid valve is normal in structure and function. Doppler and Color Flow revealed trace tricus pid regurgitation. The PA pressure was estimated at 24 mmHg. There is no tricuspid valve stenosis. PULMONIC VALVE The pulmonic valve is not well visualized. Doppler and Color Flow revealed trace pulmonic valvular re gurgitation. There is no pulmonic valvular stenosis. GREAT VESSELS The aortic root is normal in size. The ascending aorta is normal in size. The IVC is normal in size a nd collapses >50% with inspiration. PERICARDIAL EFFUSION There is no evidence of significant pericardial effusion. Critical Notification Critical Value: No <Conclusion> Severe hypokinesis of the mid to distal anterior and anteroseptal mauricio and apical wall. The Ejection Fraction is 35-40%. Trace mitral regurgitation. Trace tricuspid regurgitation. The PA pressure was estimated at 24 mmHg. There is no evidence of significant pericardial effusion. Signed by : Everardo Zamora, Electronically Approved : 05/22/2019 12:44:13
[2019-05-22] MEDS ORDERED: ZOLPIDEM 5 MG TABLET. PO PRN (15:00)
--- NOTE | 2019-05-22 15:43 | PDOC ---
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 FINISHER HELPER 05/22/19 1543: CARDIO Progress Notes Date and Time Date of Service 05/22/2019 Time of Evaluation 1500 Subjective Subjective: No Chest Pain, No shortness of breath, No Palpitations Vitals Vitals Vital Signs Date Time Temp Pulse Resp B/P (MAP) Pulse Ox O2 Delivery O2 Flow Rate FiO2 05/22/19 14:00 65 18 105/70 (82) 98 Room Air 05/22/19 12:00 98.5 98.5 05/21/19 16:30 2.0 Weight Weight [ ] Input and Output Intake and Output Intake and Output 05/22/19 07:00 Intake Total 1128 ml Output Total 0 ml Balance 1128 ml Intake Oral 240 ml IV Total 888 ml Output Urine Total 0 ml # Voids 2 # Bowel Movements 2 Laboratory Labs Laboratory Tests Test 05/22/19 04:58 White Blood Count 8.7 x10^3/uL (4.0-11.0) Red Blood Count 4.73 x10^6/uL (4.30-5.70) Hemoglobin 14.5 g/dL (13.0-17.5) Hematocrit 41.4 % (39.0-53.0) Mean Corpuscular Volume 88 fL (79-100) Mean Corpuscular Hemoglobin 31 pg (25-35) Mean Corpuscular Hemoglobin Concent 35 g/dL (31-37) Red Cell Distribution Width 13.4 % (11.5-14.5) Platelet Count 195 x10^3/uL (140-400) Neutrophils (%) (Auto) 75 % (31-73) Lymphocytes (%) (Auto) 14 % (24-48) Monocytes (%) (Auto) 10 % (0-9) Eosinophils (%) (Auto) 1 % (0-3) Basophils (%) (Auto) 0 % (0-3) Neutrophils # (Auto) 6.5 x10^3/uL (1.8-7.7) Lymphocytes # (Auto) 1.2 x10^3/uL (1.0-4.8) Monocytes # (Auto) 0.9 x10^3/uL (0.0-1.1) Eosinophils # (Auto) 0.1 x10^3/uL (0.0-0.7) Basophils # (Auto) 0.0 x10^3/uL (0.0-0.2) Sodium Level 140 mmol/L (136-145) Potassium Level 3.5 mmol/L (3.5-5.1) Chloride Level 105 mmol/L (98-107) Carbon Dioxide Level 26 mmol/L (21-32) Anion Gap 9 (6-14) Blood Urea Nitrogen 18 mg/dL (8-26) Creatinine 1.1 mg/dL (0.7-1.3) Estimated GFR (Cockcroft-Gault) 68.8 Glucose Level 131 mg/dL (70-99) Calcium Level 8.8 mg/dL (8.5-10.1) Triglycerides Level 150 mg/dL (0-150) Cholesterol Level 163 mg/dL (0-200) LDL Cholesterol, Calculated 96 mg/dL (0-100) VLDL Cholesterol, Calculated 30 mg/dL (0-40) Non-HDL Cholesterol Calculated 126 mg/dL (0-129) HDL Cholesterol 37 mg/dL (40-60) Cholesterol/HDL Ratio 4.4 Physical Exam HEENT: Neck Supple W Full Motion Chest: Symmetric LUNGS: Clear to Auscultation Heart: S1S2, RRR (SR), no gallops Abdomen: Soft N/T Extremities: No Calf Tenderness Neurology: alert, oriented, follow commands Assessment Assessment 1. Acute myocardial infarction probably with late presentation: S/P PCI/LUIS CARLOS to LAD and PTCA to diagonal branch 2. ICM: EF 30-35% per [facility]. compensated 3. Obesity 4. Metabolic syndrome Recommendations 1. Ticagrelor 90 mg BID for one month followed by Plavix 75 mg daily for preferably one year/ ECASA 81 mg 2. 2L FR, daily wt. Low Na diet. Dietitian consult, cardiac rehab 3. Continue with coreg, lisinopril and statin. 4. Anticipate DC tomorrow 5. TTE and if remains 35% of below with EF then will consider for lifevest. 6. Check A1C and TSH MARCELLA MCGHEE MD 05/22/19 0852: CARDIO Progress Notes Assessment Assessment Patient seen and examined. Agree with DIESEL ELECTRICIAN's assessment and plan. 2-D echo showed LVEF 35-40%. Clinically well compensated. s/p PCI/LUIS CARLOS to LAD, clinically stable. Continue dual antiplatelet therapy. Abdominal pain improving. Possible discharge home tomorrow. NOEL RAMOS APRN May 22, 2019 15:43 MARCELLA MCGHEE MD May 22, 2019 15:58
[2019-05-22] MEDS: ATORVASTATIN CALCIUM 40 MG TABLET. PO SCH (20:02)
[2019-05-23 03:13] LABS: HEMOGLOBIN A1C 5.5 % (4.8-5.6)
[2019-05-23 03:45] VITALS: BP 108/62
[2019-05-23 07:00] VITALS: BP 104/60
[2019-05-23] MEDS: ASPIRIN CHEWABLE 81 MG TABLET. PO SCH (08:30)
[2019-05-23] MEDS: TICAGRELOR 90 MG TABLET. PO SCH (08:30)
[2019-05-23] MEDS: LISINOPRIL 5 MG TABLET. PO SCH (08:31)
[2019-05-23] MEDS: POTASSIUM CHLORIDE 20 MEQ TABLET.ER. PO SCH (08:31)
[2019-05-23] MEDS: CARVEDILOL 6.25 MG TABLET. PO SCH (08:32)
--- NOTE | 2019-05-23 10:13 | PDOC ---
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 05/23/19 1013: CARDIO Progress Notes Date and Time Date of Service 05/23/2019 Time of Evaluation 1000 Subjective Subjective: No Chest Pain, No shortness of breath, No Palpitations Vitals Vitals Vital Signs Date Time Temp Pulse Resp B/P (MAP) Pulse Ox O2 Delivery O2 Flow Rate FiO2 05/23/19 08:34 67 104/60 05/23/19 08:00 Room Air 05/23/19 07:00 98.6 18 98 98.6 Weight Weight [ ] Input and Output Intake and Output Intake and Output 05/23/19 07:00 Intake Total 670 ml Output Total 0 ml Balance 670 ml Intake Oral 670 ml Output Urine Total 0 ml # Voids 2 Physical Exam HEENT: Neck Supple W Full Motion Chest: Symmetric LUNGS: Clear to Auscultation Heart: S1S2, RRR (SR) Abdomen: Soft N/T Extremities: No Edema, No Calf Tenderness Neurology: alert, oriented, follow commands Assessment Assessment 1. Acute myocardial infarction probably with late presentation: S/P PCI/LUIS CARLOS to LAD and PTCA to diagonal branch 2. ICM: EF 35-40% per TTE. compensated 3. Obesity 4. Metabolic syndrome: A1C controlled at 5.5 Recommendations 1. Ticagrelor 90 mg BID for one month followed by Plavix 75 mg daily for preferably one year/ ECASA 81 mg 2. 2L FR, daily wt. Low Na diet. Dietitian consult, cardiac rehab 3. Continue with coreg, lisinopril and statin. 4. Discussed K rich foods. Lasix PRN 5. Follow up on June 21 2PM 6. Defer to his PCP, discussed about outpt JD workup MARCELLA MCGHEE MD 05/23/192038: CARDIO Progress Notes Assessment Assessment Patient seen and examined. Agree with NICU RN's assessment and plan. s/p PCI/LUIS CARLOS to LAD, stable, continue DAPT Ischemic CMP compensated Follow up in one month NOEL RAMOS APRN May 23, 2019 10:13 MARCELLA MCGHEE MD May 23, 2019 20:39
[2019-05-23 11:00] VITALS: BP 96/62
[2019-05-23] MEDS ORDERED: POTASSIUM CHLORIDE 20 MEQ TABLET.ER. PO ONE (12:30)
[2019-05-23] MEDS ORDERED: LISI-338 PO (12:53)
[2019-05-23] MEDS ORDERED: ASPI-630 PO (12:53)
[2019-05-23] MEDS ORDERED: CARV6.2511 PO (12:54)
[2019-05-23] MEDS ORDERED: ATOR40TA59 PO (12:54)
[2019-05-23] MEDS ORDERED: TICA90TA PO (12:54)
[2019-05-23] MEDS ORDERED: CLOP75TA PO (13:16)
--- NOTE | 2019-05-23 13:44 | PDOC ---
[facility] [facility] PROGRESS NOTE Chief Complaint Chief Complaint Chest pain, STEMI History of Present Illness History of Present Illness 05/23/19 Pt seen and examined at bedside Pt was pleasant Not in acute distress Prior to visit, Pt was seen walking around the floor with to exercise D/w RN 05/22/19 Pt seen and examined in the ICU Accompanied by family Was sitting in chair, in good spirits 05/21/[address] Simmons for chest pain Pain started at work on Tuesday Vitals/I&O Vitals/I&O: Vital Signs Date Time Temp Pulse Resp B/P (MAP) Pulse Ox O2 Delivery O2 Flow Rate FiO2 05/23/19 11:00 99.0 65 18 96/62 (73) 96 Room Air 99.0 I & O 05/22/19 05/22/19 05/23/19 15:00 23:00 07:00 Intake Total 50 ml 620 ml Output Total 0 ml Balance 50 ml 620 ml Physical Exam Physical Exam: General: Alert, Oriented X3 HEENT: Atraumatic, PERRLA Lungs: Clear to auscultation Heart: Regular rate, No murmurs Abdomen: Soft Extremities: No edema Psych/Mental Status: Mood NL General: Alert, Oriented X3, Cooperative, No acute distress Heart: Regular rate, No murmurs Abdomen: Soft Extremities: No cyanosis, No edema, Normal pulses Skin: No rashes Labs Labs: Laboratory Tests Test 05/23/19 11:15 Magnesium Level 2.3 mg/dL (1.8-2.4) Review of Systems Review of Systems: Pt denies fever Pt denies n/v/d Assessment and Plan Assessmemt and Plan Problems Medical Problems: (1) CHF (congestive heart failure) Status: Acute (2) Hypokalemia Status: Acute (3) STEMI (ST elevation myocardial infarction) Status: Acute Assessment STEMI CHF Hypokalemia Plan Discharge in progress Wound care CAD meds (Lisinopril 5mg OD, Brilanta 90mg BID, Coreg 6.25mg BID, ASA 81mg QD, Atorvastatin 40mg QHS) DVT prophylaxis Home meds Full code Comment Review of Relevant I have reviewed the following items ta (where applicable) has been applied. Medications: Current Medications Medications (Trade) Dose Ordered Sig/Renita Route PRN Reason Start Time Stop Time Status Last Admin Dose Admin Zolpidem Tartrate (Ambien) 5 mg PRN QHS PRN PO INSOMNIA 05/22/19 15:00 05/22/19 22:27 Potassium Chloride (Klor-Con) 20 meq 1X ONCE PO 05/23/19 12:30 05/23/19 12:33 DC 05/23/19 12:46 WILNER VEGA III DO May 23, 2019 13:44
--- NOTE | 2019-05-25 08:50 | DS ---
DATE OF DISCHARGE: 05/23/2019 ADMISSION DIAGNOSIS: Acute myocardial infarction. DISCHARGE DIAGNOSIS: Status post cardiac catheterization with stent to the LAD. HOSPITAL COURSE: The patient is a pleasant middle-aged male, who presented with an acute WI. He was taken to the field laboratory operator for emergent stent placement. Post-procedure, he did well. We watched him in the ICU for a day, then on the medical floor. We saw him and examined him, on 05/23, he was doing well. We discharged him home with beta blockers, statins, JANAE inhibitors and aspirin. DISPOSITION: Home. ACTIVITY: As tolerated. DIET: Cardiac. MEDICATIONS: Please see the MRAD. TOTAL TIME: 32 minutes. WILNER VEGA DO DR: NATHALIA/izzy JOB#: [id number] / [id number]
== END 2019-05-23 14:35 | disposition home or self-care (01) | DRG 246 ==
LOC: ER 14:44 → ED HOLD 15:32 → 1 WEST ICU 16:22 → 2 NORTH 05-22 16:46
PROVIDERS: ADMIT Internal Medicine; ATTEND Internal Medicine
PROC: 4A023N7 Measurement of Cardiac Sampling and Pressure, Left Heart, Percutaneous Approach (ICD-10-PCS; principal; 2019-05-21)
PROC: 027034Z Dilation of Coronary Artery, One Artery with Drug-eluting Intraluminal Device, Percutaneous Approach (ICD-10-PCS; 2019-05-21)
PROC: 02703ZZ Dilation of Coronary Artery, One Artery, Percutaneous Approach (ICD-10-PCS; 2019-05-21)
PROC: B2111ZZ Fluoroscopy of Multiple Coronary Arteries using Low Osmolar Contrast (ICD-10-PCS; 2019-05-21)
PROC: B2151ZZ Fluoroscopy of Left Heart using Low Osmolar Contrast (ICD-10-PCS; 2019-05-21)
DX: I21.3 ST elevation (STEMI) myocardial infarction of unspecified site (principal); I50.31 Acute diastolic (congestive) heart failure; E87.6 Hypokalemia; E66.9 Obesity, unspecified; E78.00 Pure hypercholesterolemia, unspecified; E88.81 Metabolic syndrome and other insulin resistance; I25.2 Old myocardial infarction; Z95.5 Presence of coronary angioplasty implant and graft; Z88.8 Allergy status to other drugs, medicaments and biological substances; Z79.899 Other long term (current) drug therapy; I11.0 Hypertensive heart disease with heart failure; Z68.32 Body mass index [BMI] 32.0-32.9, adult
CPT/HCPCS: 92921; 92941; 93458; 96374; 99291; G0269; 36415; 80047; 80048; 80053; 80061; 82550; 83036; 83735; 83880; 84443; 84484; 85025; 85610; 93005; 93306; 99152; 99153; C1725; C1760; C1769; C1874; C1892; J0583; J1644; J2250; J3010; J3490; Q9967; C1713; C1771; G0378

== ENCOUNTER → 2019-07-30 | Outpatient (CLI) | payer OTHER ==
[~2019-07-30] MED LIST: ASPI-630 PO; ATOR40TA59 PO; CARV6.2511 PO; CLOP75TA PO; LISI-338 PO; TICA90TA PO
--- NOTE | 2019-07-31 09:32 | CARD ---
MR#: [id number] Date of Study: 07/30/2019 Ordering Physician: MARCELLA MCGHEE, Referring Physician: MARCELLA MCGHEE, Tech: Poly Singer APPROVED REPORT EXAM: Two-dimensional and M-mode echocardiogram with Doppler and color Doppler. Other Information Quality : AverageHR: 72bpm INDICATION Cardiac Disease: CAD RISK FACTORS Hyperlipidemia 2D DIMENSIONS RVDd3.3 (2.9-3.5cm)Left Atrium(2D)4.4 (1.6-4.0cm) IVSd1.2 (0.7-1.1cm)Aortic Root(2D)3.0 (2.0-3.7cm) LVDd5.5 (3.9-5.9cm)LVOT Diameter2.0 (1.8-2.4cm) PWd1.0 (0.7-1.1cm)LVDs3.2 (2.5-4.0cm) FS (%) 42.7 %SV108.3 ml LVEF(%)73.3 (>50%) Aortic Valve AoV Peak Danis.112.3cm/sAoV VTI20.5cm AO Peak GR.5.0mmHgLVOT Peak Danis.96.5cm/s LVOT VTI 20.20cmAO Mean GR.3mmHg HAILEE (VMAX)2.29le4JFK (VTI)3.21cm2 Mitral Valve MV E Qavftsci05.5cm/sMV DECEL RVOT361um MV A Wolbhowv93.2cm/sMV FAI64qe E/A Ratio1.6MVA (PHT)3.76cm2 TDI E/Lateral E'10.4E/Medial E'12.0 Pulmonary Valve PV Peak Nfgvnlnj807.7cm/sPV Peak Grad.4mmHg Tricuspid Valve TR P. Pwwptcun437ky/sRAP SVOAOSQW5wwPa TR Peak Gr.22faRqMMTJ93zpMn Pulmonary Vein S1 Ehxfpmgq95.7cm/sD2 Rwuhzpby99.7cm/s PVa rrgbmktr299zitj LEFT VENTRICLE The left ventricle is normal size. There is mild concentric left ventricular hypertrophy. The left ve ntricular systolic function is normal and the ejection fraction is within normal range. The Ejection Fraction is 50-55%. The mid to distal inferior wall and inferoseptum are moderately hypokinetic. Othe rwise, grossly normal wall motion. Transmitral Doppler flow pattern is Grade II-pseudonormal filling dynamics. RIGHT VENTRICLE The right ventricle is normal size. There is normal right ventricular wall thickness. The right ventr icular systolic function is normal. ATRIA The left atrium size is normal. The right atrium size is normal. The interatrial septum is intact wit h no evidence for an atrial septal defect or patent foramen ovale as noted on 2-D or Doppler imaging. AORTIC VALVE The aortic valve is thickened but opens well. Doppler and Color Flow revealed no significant aortic r egurgitation. There is no significant aortic valvular stenosis. MITRAL VALVE The mitral valve is thickened but opens well. There is no evidence of mitral valve prolapse. There is no mitral valve stenosis. Doppler and Color-flow revealed trace to mild mitral regurgitation. TRICUSPID VALVE The tricuspid valve is normal in structure and function. Doppler and Color Flow revealed trace tricus pid regurgitation with an estimated PAP of 25 mmHg. There is no tricuspid valve prolapse or vegetatio n. There is no tricuspid valve stenosis. PULMONIC VALVE Doppler and Color Flow revealed mild pulmonic valvular regurgitation. There is no pulmonic valvular s tenosis. GREAT VESSELS The aortic root is normal in size. The IVC is normal in size and collapses >50% with inspiration. PERICARDIAL EFFUSION There is no evidence of significant pericardial effusion. Critical Notification Critical Value: No <Conclusion> The left ventricular systolic function is normal and the ejection fraction is within normal range. Th e Ejection Fraction is 50-55%. The mid to distal inferior wall and inferoseptum are moderately hypokinetic. Otherwise, grossly jules l wall motion. Signed by : Андрей Perez, Electronically Approved : 07/31/2019 09:32:06
== END | disposition home or self-care (01) ==
LOC: ECHO 14:03
PROVIDERS: ATTEND Internal Medicine Cardiovascular Disease
DX: I34.0 Nonrheumatic mitral (valve) insufficiency (principal); I11.9 Hypertensive heart disease without heart failure; I25.10 Atherosclerotic heart disease of native coronary artery without angina pectoris
CPT/HCPCS: 93306

== ENCOUNTER → 2020-11-26 | Outpatient (CLI) | payer OTHER ==
[~2020-11-26] MED LIST changes: -LISI-338 PO; +LISI-517 PO; +PERFLUTREN PROTEIN-A MICROSPHR 0.22 MG/ML 3 ML VIAL. IV ONE; +REGADENOSON 0.4 MG/5 ML DISP.SYRIN. IV ONE
--- NOTE | 2020-11-26 11:53 | CARD ---
MR#: [id number] Date of Study: 11/26/2020 Ordering Physician: MARCELLA MCGHEE, Referring Physician: MARCELLA MCGHEE Tech: Kristy De Jesus RDCS APPROVED REPORT EXAM: Two-dimensional and M-mode echocardiogram with Doppler and color Doppler. Other Information Quality : Technically Limited Technically limited study due to body habitus. INDICATION Cardiac Disease: CAD Echo Enhancing Agent Agent/Amount Used: Optison 4mL 2D DIMENSIONS RVDd2.7 (2.9-3.5cm)Left Atrium(2D)4.1 (1.6-4.0cm) IVSd1.5 (0.7-1.1cm)Aortic Root(2D)3.2 (2.0-3.7cm) LVDd4.8 (3.9-5.9cm)LVOT Diameter2.1 (1.8-2.4cm) PWd1.2 (0.7-1.1cm)LVDs3.4 (2.5-4.0cm) FS (%) 29.0 %SV59.0 ml LVEF(%)55.6 (>50%) Aortic Valve AoV Peak Danis.107.9cm/sAoV VTI21.5cm AO Peak GR.4.7mmHgLVOT Peak Danis.101.3cm/s AO Mean GR.3mmHgAVA (VMAX)3.40cm2 HAILEE (VTI)3.60cm2 Mitral Valve MV E Lfuexuph01.5cm/sMV DECEL GKQR099lh MV A Lwkqpoqm77.3cm/sE/A Ratio1.0 Pulmonary Vein S1 Vlgjvgzh50.0cm/sD2 Lidwfbxs96.9cm/s LEFT VENTRICLE The left ventricle is normal size. There is mild to moderate concentric left ventricular hypertrophy. The left ventricular systolic function is normal and the ejection fraction is within normal range. T he Ejection Fraction is 55-60%. The distal inferior wall and apex are moderately hypokinetic. Transmi tral Doppler flow pattern is Grade II-pseudonormal filling dynamics. RIGHT VENTRICLE The right ventricle is normal size. The right ventricular systolic function is normal. ATRIA The left atrium is mildly dilated. The right atrium size is normal. The interatrial septum is intact with no evidence for an atrial septal defect or patent foramen ovale as noted on 2-D or Doppler imagi ng. AORTIC VALVE The aortic valve is calcified but opens well. Doppler and Color Flow revealed no significant aortic r egurgitation. There is no significant aortic valvular stenosis. MITRAL VALVE The mitral valve is calcified but opens well. There is no evidence of mitral valve prolapse. There is no mitral valve stenosis. Doppler and Color-flow revealed trace mitral regurgitation. TRICUSPID VALVE The tricuspid valve is normal in structure and function. Doppler and Color Flow revealed no tricuspid valve regurgitation noted. There is no tricuspid valve stenosis. PULMONIC VALVE The pulmonic valve is not well visualized. Doppler and Color Flow revealed mild pulmonic valvular reg urgitation. There is no pulmonic valvular stenosis. GREAT VESSELS The aortic root is normal in size. The ascending aorta is normal in size. The IVC is dilated and maranda apses >50% with inspiration. PERICARDIAL EFFUSION There is no evidence of significant pericardial effusion. Critical Notification Critical Value: No <Conclusion> The left ventricular systolic function is normal and the ejection fraction is within normal range. Th e Ejection Fraction is 55-60%. The distal inferior wall and apex are moderately hypokinetic. Signed by : Андрей Perez, Electronically Approved : 11/26/2020 11:53:03
--- NOTE | 2020-11-27 09:38 | RAD ---
MR#: [id number] Date of Study: 11/26/2020 Ordering Physician: MARCELLA MCGHEE, Referring Physician: REBECCA BAEZ Tech: ABHISHEK Peralta APPROVED REPORT Test Type: Pharmacological Stress Nurse/Tech: Darrin Huerta RN Test Indications: CAD Cardiac History: MO with stent LAD 2020, HTN, , High cholesterol Medications: See Electronic Medical Record Medical History: See Electronic Medical Record Resting ECG: SR BBB Resting Heart Rate: 62 bpm Resting Blood Pressure: 142/75mmHg Pretest Chest Pain: None Nurse/Tech Notes Lungs CTA, S1S2 Consent: The procedure was explained to the patient in lay terms. Informed consent was witnessed. Liam eout was entered into [employer]. History and Stress Test performed by FRANCISCO Nolen, MORGAN (R) (N) Pharm. Details Pharmacologic stress testing was performed using 0.4mg per 5ml of regadenoson given intravenously ove r 7-10 seconds. Stress Symptoms No chest pain or symptoms. POST EXERCISE Reason for Termination: Infusion complete Max HR: 95 bpm Max Blood Pressure: 126/74mmHg Blood Pressure response to exercise: Normal blood pressure response during stress. Heart Rate response to exercise: Normal response Chest Pain: No. Arrhythmia: No. ST Change: No. INTERPRETATION Stress EKG Conclusion: No evidence of stress induced EKG changes. Imaging Protocol IMAGE PROTOCOL: Rest Tc-99m/stress Tc-99m 1 day Rest: Stress: Viability: Radiopharm.Tc99m BzsrzfpsqUe62e Sestamibi Fxtj42qRs 33mCi Duration 15min. 10min. Img Date 11/26/2020 11/26/2020 Inj-Img Bwau90cdk. 60min. Rest Admin Site:IV - Right AntecubitalAdministrator:FRANCISCO Nolen ARRT (R)(N) Stress Admin Site: IV - Right AntecubitalAdministrator: FRANCISCO Nolen, MORGAN (R)(N) STRESS DATA End Diast. Vol.110.0mlAv. Heart Rate64.0bpm End Syst. Vol.47.0mlCO Index BSA0.0L/min Myocardial Bpoa711.0gEject. Wbixakwe45.0% Stress Rates Pk. Fill Rate2.86EDV/secLVtime Pk. Fill 123.99msec Pk. Empty Rate3.60ESV/secLVtime Pk. Ltbcl723.90msec 08/31 Pk. Fill1.76EDV/sec Stress Scores Regional WT0.00Summed WT12.00 Regional WM0.00Summed WM9.00 LV Perfusion There is a moderate to large sized severe in intensity FIXED mid to distal anterior and apical perfus ion defect consistent with a prior LAD territory infarct. No significant ischemia is noted. Based on defec tracer uptake on rest images, this defect is mostly non-viable. Wall Motion Mild LV dysfunction. EF 50% LV Perf. Quant 17 Seg. SSS13.00 17 Seg. SRS18.00 17 Seg. SDS0.00 Stress Defect Extent (% LAD)51.30Rest Defect Extent (% LAD)59.40Rev. Defect Extent (% LAD)0.00 Stress Defect Extent (% LCX) 18.80Rest Defect Extent (% LCX)26.30Rev. Defect Extent (% LCX)0.00 Stress Defect Extent (% RCA)3.30Rest Defect Extent (% RCA)1.10Rev. Defect Extent (% RCA)0.00 Stress Defect Extent (% VANITA)33.50Rest Defect Extent (% VANITA)38.50Rev. Defect Extent (% VANITA)0.00 Other Information Quality:Average Risk Assessment: Moderate Risk Conclusion 1. No evidence of stress induced EKG changes. 2. Moderate to large sized FIXED LAD territory infarct, without significant ischemia 3. Mild LV dysfunction. EF 50% 4. Moderate risk for future CV events. Signed by : Андрей Perez, Electronically Approved : 11/27/2020 09:38:41
== END ==
LOC: NM 09:10
PROVIDERS: ATTEND Internal Medicine Cardiovascular Disease
DX: I08.8 Other rheumatic multiple valve diseases (principal); I25.2 Old myocardial infarction; I10 Essential (primary) hypertension
CPT/HCPCS: 78452; 93017; A9500; C8929; J2785; Q9956

== ENCOUNTER → 2021-12-17 | Outpatient (CLI) | payer OTHER ==
[~2021-12-17] MED LIST changes: -LISI-517 PO; +LISI5TAB15 PO; -PERFLUTREN PROTEIN-A MICROSPHR 0.22 MG/ML 3 ML VIAL. IV ONE; -REGADENOSON 0.4 MG/5 ML DISP.SYRIN. IV ONE
--- NOTE | 2021-12-17 17:16 | CARD ---
MR#: [id number] Date of Study: 12/17/2021 Ordering Physician: MARCELLA MCGHEE, Referring Physician: Daniel BAEZ: Star Cox [facility] APPROVED REPORT EXAM: Two-dimensional and M-mode echocardiogram with Doppler and color Doppler. Other Information Quality : FairHR: 71bpm Rhythm : NSR INDICATION Cardiac Disease: CAD RISK FACTORS Hypertension Family History Metabolic syndrome 2D DIMENSIONS Left Atrium(2D)4.5 (1.6-4.0cm)IVSd1.2 (0.7-1.1cm) Aortic Root(2D)3.6 (2.0-3.7cm)LVDd4.8 (3.9-5.9cm) LVOT Diameter2.1 (1.8-2.4cm)PWd1.2 (0.7-1.1cm) LA Kxlaaj95 (18-58mL)LVDs3.3 (2.5-4.0cm) FS (%) 30.3 %SV60.7 ml Aortic Valve AoV Peak Danis.117.9cm/sAoV VTI26.2cm AO Peak GR.5.6mmHgLVOT Peak Danis.93.6cm/s LVOT VTI 21.50cmAO Mean GR.3mmHg HAILEE (VMAX)2.41nw5QJC (VTI)2.78cm2 Mitral Valve MV E Ibbvxizx81.1cm/sMV DECEL NTOW284eu MV A Crieqsml36.0cm/sMV JNZ10dk E/A Ratio1.2MVA (PHT)3.98cm2 TDI E/Lateral E'9.8E/Medial E'13.8 Pulmonary Valve PV Peak Fjjjqbwx025.7cm/sPV Peak Grad.5mmHg Tricuspid Valve TR P. Qaegrmqf572zu/sTR Peak Gr.17mmHg Pulmonary Vein S1 Khtyiifc66.7cm/sD2 Cmacdyry13.4cm/s LEFT VENTRICLE The left ventricle is normal size. There is borderline to mild concentric left ventricular hypertroph y. The left ventricular systolic function is normal. LV ejection fraction is 50 to 55%. There is nor mal LV segmental wall motion. No left ventricle thrombus noted on this study. There is no ventricular septal defect visualized. There is no left ventricular aneurysm. There is no mass noted in the left ventricle. RIGHT VENTRICLE The right ventricle is normal size. There is normal right ventricular wall thickness. The right ventr icular systolic function is normal. ATRIA The left atrium is mildly dilated. The right atrium size is normal. The interatrial septum is intact with no evidence for an atrial septal defect or patent foramen ovale as noted on 2-D or Doppler imagi ng. AORTIC VALVE The aortic valve is normal in structure and function. Doppler and Color Flow revealed no significant aortic regurgitation. There is no significant aortic valvular stenosis. There is no aortic valvular v egetation. MITRAL VALVE The mitral valve is normal in structure and function. There is no evidence of mitral valve prolapse. There is no mitral valve stenosis. Doppler and Color-flow revealed trace to mild mitral regurgitation . TRICUSPID VALVE The tricuspid valve is normal in structure and function. Doppler and Color Flow revealed trace tricus pid regurgitation. The PA pressure was estimated at 27 mmHg. There is no tricuspid valve prolapse or vegetation. There is no tricuspid valve stenosis. PULMONIC VALVE The pulmonary valve is normal in structure and function. Doppler and Color Flow revealed no pulmonic valvular regurgitation. There is no pulmonic valvular stenosis. GREAT VESSELS The aortic root is normal in size. The ascending aorta is normal in size. The pulmonary artery is nor mal. The IVC is normal in size and collapses >50% with inspiration. PERICARDIAL EFFUSION There is no pleural effusion. There is no evidence of significant pericardial effusion. Critical Notification Critical Value: No <Conclusion> The left ventricle is normal size. The left ventricular systolic function is normal. LV ejection fraction is 50 to 55%. There is borderline to mild concentric left ventricular hypertrophy. Doppler and Color Flow revealed no significant aortic regurgitation. There is no significant aortic valvular stenosis. Doppler and Color-flow revealed trace to mild mitral regurgitation. Doppler and Color Flow revealed trace tricuspid regurgitation. The PA pressure was estimated at 27 mmHg. Signed by : Serg Gonzales MD Electronically Approved : 12/17/2021 17:16:08
== END ==
LOC: ECHO 14:09
PROVIDERS: ATTEND Internal Medicine Cardiovascular Disease
DX: I34.0 Nonrheumatic mitral (valve) insufficiency (principal); I51.7 Cardiomegaly; I25.10 Atherosclerotic heart disease of native coronary artery without angina pectoris
CPT/HCPCS: 93306; C8929